=== PATIENT | female | born 1970 ===

== ENCOUNTER 2017-07-22 08:23 | Inpatient (IN) | payer OTHER ==
[2017-07-22 08:32] VITALS: BMI 48.4
[2017-07-22 09:26] LABS: BASO % 0.5 % (0.0-2.0); EOS # 0.1 K/uL (0.0-0.7); EOS % 0.8 % (0.0-4.0); HEMATOCRIT 40.8 % (34.0-47.0); LYMPH # 1.7 K/uL (1.0-4.3); LYMPH % 17.9 % (20.0-40.0); MEAN CELL VOLUME 83.2 fL (81.0-99.0); MEAN CORPUSCULAR HEMOGLOBIN 27.7 pg (27.0-31.0); MEAN CORPUSCULAR HGB CONC 33.2 g/dL (33.0-37.0); MEAN PLATELET VOLUME 9.3 fL (7.2-11.7); MONO # 0.6 K/uL (0.0-0.8); MONO % 6.8 % (0.0-10.0); RED CELL DISTRIBUTION WIDTH 14.7 % (11.5-14.5); WHITE BLOOD COUNT 9.4 K/uL (4.8-10.8)
[2017-07-22 09:30] LABS: RBC URINE 1 /hpf (0-3); URINE BACTERIA MANY (<OCC); URINE BILIRUBIN NEGATIVE (NEGATIVE); URINE BLOOD NEGATIVE (NEGATIVE); URINE COLOR Amber (YELLOW); URINE GLUCOSE (UA) NORMAL (Normal); URINE KETONE NEGATIVE (NEGATIVE); URINE LEUKOCYTE ESTERASE TRACE Leu/uL (Negative); URINE PROTEIN NEGATIVE (NEGATIVE); WBC URINE 5 /hpf (0-5)
[2017-07-22 09:35] LABS: CHLORIDE 100 mmol/L (98-107); POTASSIUM 3.9 mmol/L (3.6-5.2); SODIUM 138 mmol/L (132-148)
[2017-07-22 09:38] LABS: ALB/GLOB RATIO 1.1 (1.0-2.1); ALKALINE PHOSPHATASE 122 U/L (38-126); ALT/SGPT 43 U/L (9-52); AST/SGOT 29 U/L (14-36); BILIRUBIN,TOTAL 0.7 mg/dL (0.2-1.3); BLOOD UREA NITROGEN 8 mg/dL (7-17); CALCIUM 8.8 mg/dl (8.6-10.4); CARBON DIOXIDE 26 mmol/L (22-30); GFR AFRICAN-AMERICAN > 60; GLUCOSE,RANDOM 129 mg/dL (65-105); TOTAL PROTEIN 7.8 g/dL (6.3-8.3)
[2017-07-22 09:41] LABS: INR 1.1
--- NOTE | 2017-07-22 09:45 | RAD ---
PROCEDURE: CHEST RADIOGRAPH, 1 VIEW HISTORY: Chest pain COMPARISON: None available. FINDINGS: LUNGS: Moderate venous congestion. Patchy bibasilar airspace opacities. PLEURA: No pneumothorax or pleural fluid seen. CARDIOVASCULAR: Normal. OSSEOUS STRUCTURES: No significant abnormalities. VISUALIZED UPPER ABDOMEN: Normal. OTHER FINDINGS: None. IMPRESSION: Moderate venous congestion. Patchy bibasilar airspace opacities.
[2017-07-22] MEDS ORDERED: Iodixanol 320 mg/ml 150 ml Bottle IV ONE (11:30)
--- NOTE | 2017-07-22 11:33 | C.PDOC ---
History Of Present Illness 46 year old female, with PMHx of diabetes, rheumatoid arthritis, HTN, chronic pain, presents to ED for evaluation of sudden onset of lightheadedness and chest pressure/pain associated with shortness of breath while sitting and working at her desk today. Pt states that she tried to lay down but her symptoms worsened, which prompted her to call the ambulance. Pt also reports worsening bilateral lower extremity swelling over the last 1 week. She denies palpitations, headache, visual changes, facial droop, slurred speech, extremity weakness, sensory changes, fever. Time Seen by Provider: 07/22/17 08:37 Chief Complaint (Nursing): Dizziness/Lightheaded History Per: Patient History/Exam Limitations: no limitations Onset/Duration Of Symptoms: Hrs Current Symptoms Are (Timing): Still Present Activity At Onset Of Symptoms: Sitting Associated Symptoms Preceding Syncopal Episode: Lightheadedness Fall Associated With With Symptoms: No Severity: Moderate Additional History Per: Patient Past Medical History Reviewed: Historical Data, Nursing Documentation, Vital Signs Vital Signs: Last Vital Signs Temp 97.5 F L 07/22/17 16:46 Pulse 64 07/22/17 16:46 Resp 16 07/22/17 16:46 BP 107/61 07/22/17 16:46 Pulse Ox 98 07/22/17 16:46 - Medical History PMH: Diabetes, HTN, Rheumatoid Arthritis Surgical History: Appendectomy Family History: States: No Known Family Hx - Social History Hx Tobacco Use: Yes Hx Alcohol Use: No Hx Substance Use: Yes - Immunization History Hx Tetanus Toxoid Vaccination: Yes Hx Influenza Vaccination: No Hx Pneumococcal Vaccination: No Review Of Systems Except As Marked, All Systems Reviewed And Found Negative. Constitutional: Negative for: Fever, Chills Eyes: Negative for: Vision Change Cardiovascular: Positive for: Chest Pain (pressure), Edema (lower extremities), Light Headedness. Negative for: Palpitations Respiratory: Positive for: Shortness of Breath. Negative for: Cough Gastrointestinal: Negative for: Nausea, Vomiting, Abdominal Pain Skin: Negative for: Rash Neurological: Negative for: Weakness, Numbness, Change in Speech, Headache Physical Exam - Physical Exam Appears: Well, Non-toxic, Other (anxious appearing, morbidly obese, speaking in full sentences) Skin: Warm, Dry, No Rash Head: Normacephalic Eye(s): bilateral: Normal Inspection Oral Mucosa: Moist Neck: Supple Chest: Symmetrical Cardiovascular: Rhythm Regular (tachycardic), No Murmur Respiratory: Normal Breath Sounds, No Rales, No Rhonchi, No Wheezing Gastrointestinal/Abdominal: Normal Exam, Bowel Sounds, Soft, No Tenderness, No Guarding, No Rebound, Other (obese abdomen) Back: No CVA Tenderness Extremity: Normal ROM, No Tenderness, Pedal Edema (+1 pitting edema bilateral LEs), No Calf Tenderness, Capillary Refill (<2 sec.), No Deformity Pulses: Left Dorsalis Pedis: Normal, Right Dorsalis Pedis: Normal Neurological/Psych: Oriented x3 ED Course And Treatment - Laboratory Results Result Diagrams: 07/22/17 09:21 07/22/17 09:21 ECG: Interpreted By Me, Viewed By Me ECG Rhythm: Sinus Tachycardia ECG Interpretation: Abnormal Interpretation Of ECG: Normal axis. No acute ST/T wave changes. Rate From EC (bpm) O2 Sat by Pulse Oximetry: 97 (on RA) Pulse Ox Interpretation: Normal - CT Scan/US V/Q SCAN Other Rad Studies (CT/US): Read By Radiologist, Radiology Report Reviewed CT/US Interpretation: Accession No. : [id number]. Patient Name / ID : EDUARDA WALSH / [id number]. Exam Date : 07/22/2017 14:08:13 ( Approved ). Study Comment : Sex / Age : F / 46Y. Creator : Riley Bose MD. Dictator : Riley Bose MD. Repeat Chief : Account Director : Riley Bose MD. Approver2 : Report Date : 07/22/2017 15:25:29. My Comment : . COMPARISON: Chest radiograph 07/30/[address] angiogram of the chest , same date. TECHNIQUE: 9.5 mCi Xe-133 Gas. . 3.9 mCI technetium 99-m MAA administered intravenously. FINDINGS: VENTILATION COMPONENT: Diminished uptake is appreciated the left lung primarily in the posterior view. Homogeneous uptake is seen at the left lung. PERFUSION COMPONENT: A small unmatched defect is appreciate the medial superior segment left lower lobe with a very small possible perfusion mismatch at the left apex laterally. A matched moderate sized superior segment left lower lobe perfusion defect is identified. IMPRESSION: Pattern is intermediate probability for pulmonary embolus. CT ANGIO CHEST Other Rad Studies (CT/US): Read By Radiologist, Radiology Report Reviewed CT/US Interpretation: Accession No. : [id number]. Patient Name / ID : EDUARDA WALSH Y / [id number]. Exam Date : 07/22/2017 11:49:24 ( Approved ). Study Comment : Sex / Age : F / 46Y. Creator : Anthony Gates MD. Dictator : Anthony Gates MD. Repeat Chief : Account Director : Anthony Gates MD. Approver2 : Report Date : 07/22/2017 13:19:17. My Comment : . PROCEDURE: CT Chest with contrast (Pulmonary Angiogram). HISTORY: CP, SOB, ELEVATED DIMER, R/O IN. COMPARISON: Chest x-ray performed earlier same day. TECHNIQUE : Axial computed tomography images were obtained of the chest in the pulmonary arterial phase of enhancement. Coronal and sagittal reformatted images were created and reviewed. Radiation dose: Total exam DLP = 673 mGy-cm. This CT exam was performed using one or more of the following dose reduction techniques : Automated exposure control, adjustment of the mA and/or kV according to patient size, and/or use of iterative reconstruction technique. FINDINGS: PULMONARY ARTERIES: Suboptimal contrast bolus. No definite pulmonary embolus identified. AORTA: Thoracic aorta is normal in caliber. LUNGS: Focal area of atelectasis/scarring noted in the right upper lobe. Multifocal areas of air trapping noted in the bilateral upper lobes and lower lobes. The trachea and major segmental bronchi are patent. PLEURAL SPACES: No pleural effusion identified. HEART: Heart size is within normal limits. No significant pericardial effusion. LYMPH NODES: There is no significant axillary, mediastinal, or hilar lymphadenopathy. BONES, CHEST WALL: Mild levoscoliosis upper thoracic spine. OTHER FINDINGS: Mild to moderate atrophy of the pancreas. Remainder of the visualized upper abdominal viscera are grossly unremarkable. Visualized thyroid gland is unremarkable. IMPRESSION: Suboptimal contrast bolus. No definite pulmonary embolus identified. Multifocal areas of air trapping throughout the lungs as above. Additional findings as above. Progress Note: Blood work, CXR, EKG, UA ordered and reviewed. D-dimer was elevated - CTA chest angio ordered. CTA chest result showed "suboptimal contrast bolus", so VQ scan also ordered. Discussed patient with Dr. Farah, who agrees with admission for chest pain, r/o ACS, possible PE (V/Q scan pending ). 3:35PM- V/Q Scan shows "intermediate probability" for PE - Lovenox SC ordered for possible PE. - Physician Consult Information Physician Contacted: Irina Farah Outcome Of Conversation: Discussed patient with Dr. Farah, agrees with telemetry admission for chest pain r/o ACS vs PE (V/Q scan pending). Critical Care Time - Critical Care Note Total Time (in mins): 35 Documented critical care: time excludes all time spent performing seperately billable procedures. Medical Decision Making Medical Decision Making: differential diagnoses considered: SC/ACS, PE, pneumonia, bronchitis, COPD/ asthma, CHF, aortic dissection, rheumatoid aortitis, pancreatitis, gastritis, PUD, GERD, esophageal spasm, costochondritis, malignancy, shingles Disposition - Disposition Disposition: HOSPITALIZED Disposition Time: 13:27 Condition: STABLE - Clinical Impression Clinical Impression: Chest pain, Dyspnea, Pulmonary embolism - Scribe Statement The provider has reviewed the documentation as recorded by the Micah Gates All medical record entries made by the Veroniqueibfrank were at my direction and personally dictated by me. I have reviewed the chart and agree that the record accurately reflects my personal performance of the history, physical exam, medical decision making, and the department course for this patient. I have also personally directed, reviewed, and agree with the discharge instructions and disposition. Decision To Admit - Pt Status Changed To: Hospital Disposition Of: Inpatient - Admit Certification Admit to Inpatient:: After my assessment, the patient will require hospitalization for at least two midnights. This is because of the severity of symptoms shown, intensity of services needed, and/or the medical risk in this patient being treated as an outpatient. - InPatient: Physician Admission Certification: I certify that this patient requires 2 or more midnights of care for the following reason:: see notes - . Bed Request Type: Telemetry Admitting Physician: Irina Farah Patient Diagnosis: Chest pain, Dyspnea, Pulmonary embolism
--- NOTE | 2017-07-22 13:20 | CT ---
PROCEDURE: CT Chest with contrast (Pulmonary Angiogram) HISTORY: CP, SOB, ELEVATED DIMER, R/O [place] COMPARISON: Chest x-ray performed earlier same day TECHNIQUE: Axial computed tomography images were obtained of the chest in the pulmonary arterial phase of enhancement. Coronal and sagittal reformatted images were created and reviewed. Radiation dose: Total exam DLP = 673 mGy-cm. This CT exam was performed using one or more of the following dose reduction techniques: Automated exposure control, adjustment of the mA and/or kV according to patient size, and/or use of iterative reconstruction technique. FINDINGS: PULMONARY ARTERIES: Suboptimal contrast bolus. No definite pulmonary embolus identified. AORTA: Thoracic aorta is normal in caliber. LUNGS: Focal area of atelectasis/scarring noted in the right upper lobe. Multifocal areas of air trapping noted in the bilateral upper lobes and lower lobes. The trachea and major segmental bronchi are patent. PLEURAL SPACES: No pleural effusion identified. HEART: Heart size is within normal limits. No significant pericardial effusion. LYMPH NODES: There is no significant axillary, mediastinal, or hilar lymphadenopathy. BONES, CHEST WALL: Mild levoscoliosis upper thoracic spine. OTHER FINDINGS: Mild to moderate atrophy of the pancreas. Remainder of the visualized upper abdominal viscera are grossly unremarkable. Visualized thyroid gland is unremarkable. IMPRESSION: Suboptimal contrast bolus. No definite pulmonary embolus identified. Multifocal areas of air trapping throughout the lungs as above. Additional findings as above.
--- NOTE | 2017-07-22 15:27 | NM ---
COMPARISON: Chest radiograph 07/30/[address] angiogram of the chest, same date. TECHNIQUE: 9.5 mCi Xe-133 Gas. 3.9 mCI technetium 99-m MAA administered intravenously. FINDINGS: VENTILATION COMPONENT: Diminished uptake is appreciated the left lung primarily in the posterior view. Homogeneous uptake is seen at the left lung. PERFUSION COMPONENT: A small unmatched defect is appreciate the medial superior segment left lower lobe with a very small possible perfusion mismatch at the left apex laterally. A matched moderate sized superior segment left lower lobe perfusion defect is identified. IMPRESSION: Pattern is intermediate probability for pulmonary embolus.
[2017-07-22] MEDS ORDERED: Enoxaparin 80 mg Syringe SC STA (15:36)
[2017-07-22] MEDS: (Novolin R) Insulin Human Regular 100 units/ml vial SC SCH (21:54)
--- NOTE | 2017-07-23 07:57 | CP.PCM.CON ---
History of Present Illness - History of Present Illness History of Present Illness: Consultation requested for evaluation of chest pain HPI: 46-year-old female with past medical history significant for hypertension history of abusing heroin resenting with complaints of chest pain. According to the patient she has a long history of drug abuse reportedly using a back 1-2 bags of heroin in the past presented after abusing of back and developing chest pain. She reports having anxiety denies having any depression. According to the patient she was at home and she started developing severe shortness of breath accompanied with pressure-like sensation. Symptoms lasted for a few hours and therefore she came to the emergency room. He has a history of diabetes that was diagnosed about 6 months ago by her primary care physician and pain doctor and also has been on blood pressure medications for hypertension. Currently smokes half a pack per day and is morbidly obese. Review of Systems - Review of Systems All systems: reviewed and no additional remarkable complaints except - Constitutional Constitutional: As Per HPI - EENT Eyes: As Per HPI Ears: As Per HPI Nose/Mouth/Throat: As Per HPI - Breasts Breasts: As Per HPI - Cardiovascular Cardiovascular: As Per HPI - Respiratory Respiratory: As Per HPI - Gastrointestinal Gastrointestinal: As Per HPI - Genitourinary Genitourinary: As Per HPI - Reproductive: Female Reproductive:Female: As Per HPI - Menstruation Menstruation: As Per HPI - Musculoskeletal Musculoskeletal: As Per HPI - Integumentary Integumentary: As Per HPI - Neurological Neurological: As Per HPI - Psychiatric Psychiatric: As Per HPI - Endocrine Endocrine: As Per HPI - Hematologic/Lymphatic Hematologic: As Per HPI Past Patient History - Past Medical History & Family History Past Medical History?: Yes Pertinent Family History: +ve for HTN - Past Social History Smoking Status: Current Some Days Smoker - CARDIAC Hx Cardiac Disorders: Yes Hx Hypertension: Yes - PULMONARY Hx Respiratory Disorders: No - NEUROLOGICAL Hx Neurological Disorder: No - HEENT Hx HEENT Problems: No - RENAL Hx Chronic Kidney Disease: No - ENDOCRINE/METABOLIC Hx Endocrine Disorders: Yes Hx Diabetes Mellitus Type 2: Yes - HEMATOLOGICAL/ONCOLOGICAL Hx Blood Disorders: No - INTEGUMENTARY Hx Dermatological Problems: No - MUSCULOSKELETAL/RHEUMATOLOGICAL Hx Musculoskeletal Disorders: Yes Hx Falls: No Hx Rheumatoid Arthritis: Yes - GASTROINTESTINAL Hx Gastrointestinal Disorders: No - GENITOURINARY/GYNECOLOGICAL Hx Genitourinary Disorders: No - PSYCHIATRIC Hx Psychophysiologic Disorder: Yes Hx Substance Use: Yes (heroin daily) - SURGICAL HISTORY Hx Surgeries: Yes Hx Appendectomy: Yes - ANESTHESIA Hx Anesthesia: Yes Hx Anesthesia Reactions: No Hx Malignant Hyperthermia: No Meds Allergies/Adverse Reactions: Allergies Allergy/AdvReac Type Severity Reaction Status Date / Time Penicillins Allergy RASH Verified 07/22/17 08:32 - Medications Medications: Current Medications Insulin Human Regular (Novolin R) 0 unit SC ACHS CHARISSA PRN Reason: Protocol Last Admin: 07/22/17 21:54 Dose: Not Given Pneumococcal Polyvalent Vaccine (Pneumovax 23 Vaccine) 0.5 ml IM .ONCE ONE Stop: 07/25/17 10:01 Physical Exam - Constitutional Appears: Well - Head Exam Head Exam: ATRAUMATIC, NORMAL INSPECTION, NORMOCEPHALIC - Eye Exam Eye Exam: EOMI, Normal appearance, PERRL Pupil Exam: NORMAL ACCOMODATION, PERRL - ENT Exam ENT Exam: Mucous Membranes Moist, Normal Exam - Neck Exam Neck exam: Positive for: Normal Inspection - Respiratory Exam Respiratory Exam: Clear to Auscultation Bilateral, NORMAL BREATHING PATTERN - Cardiovascular Exam Cardiovascular Exam: REGULAR RHYTHM, +S1, +S2, Systolic Murmur - GI/Abdominal Exam GI & Abdominal Exam: Normal Bowel Sounds, Soft. absent: Tenderness - Extremities Exam Extremities exam: Positive for: normal inspection - Back Exam Back exam: NORMAL INSPECTION - Neurological Exam Neurological exam: Alert, CN II-XII Intact, Normal Gait, Oriented x3, Reflexes Normal - Psychiatric Exam Psychiatric exam: Normal Affect, Normal Mood - Skin Skin Exam: Dry, Intact, Normal Color, Warm Results - Vital Signs Recent Vital Signs: Last Vital Signs Temp 98.4 F 07/22/17 23:00 Pulse 86 07/23/17 01:05 Resp 20 07/22/17 23:00 BP 119/74 07/22/17 23:00 Pulse Ox 96 07/22/17 23:00 - Labs Result Diagrams: 07/22/17 09:21 07/22/17 09:21 Labs: Laboratory Results - last 24 hr 07/22/17 07/22/17 07/22/17 08:39 09:21 09:21 WBC 9.4 RBC 4.90 Hgb 13.6 Hct 40.8 MCV 83.2 MCH 27.7 MCHC 33.2 RDW 14.7 H Plt Count 179 MPV 9.3 Neut % (Auto) 74.0 Lymph % (Auto) 17.9 L [place] % (Auto) 6.8 Eos % (Auto) 0.8 Baso % (Auto) 0.5 Neut # 7.0 Lymph # 1.7 [place] # 0.6 Eos # 0.1 Baso # 0.0 PT 12.8 H INR 1.1 APTT 39 H D-Dimer, Quantitative 474 H Sodium Potassium Chloride Carbon Dioxide Anion Gap BUN Creatinine Est GFR ( Amer) Est GFR (Non-Af Amer) POC Glucose (mg/dL) 154 H Random Glucose Calcium Total Bilirubin AST ALT Alkaline Phosphatase Total Creatine Kinase CK-MB (Mass) Troponin I Troponin I, Quant NT-Pro-B Natriuret Pep Total Protein Albumin Globulin Albumin/Globulin Ratio Urine Color Urine Clarity Urine pH Ur Specific [place] Urine Protein Urine Glucose (UA) Urine Ketones Urine Blood Urine Nitrate Urine Bilirubin Urine Urobilinogen Ur Leukocyte Esterase Urine WBC (Auto) Urine RBC (Auto) Ur Squamous Epith Cells Urine Bacteria Urine HCG, Qual Urine Opiates Screen Urine Methadone Screen Ur Barbiturates Screen Ur Phencyclidine Scrn Ur Amphetamines Screen U Benzodiazepines Scrn U Oth Cocaine Metabols U Cannabinoids Screen 07/22/17 07/22/17 07/22/17 09:21 09:21 09:21 WBC RBC Hgb Hct MCV MCH MCHC RDW Plt Count MPV Neut % (Auto) Lymph % (Auto) [place] % (Auto) Eos % (Auto) Baso % (Auto) Neut # Lymph # [place] # Eos # Baso # PT INR APTT D-Dimer, Quantitative Sodium 138 Potassium 3.9 Chloride 100 Carbon Dioxide 26 Anion Gap 15 BUN 8 Creatinine 0.7 Est GFR ( Amer) > 60 Est GFR (Non-Af Amer) > 60 POC Glucose (mg/dL) Random Glucose 129 H Calcium 8.8 Total Bilirubin 0.7 AST 29 ALT 43 Alkaline Phosphatase 122 Total Creatine Kinase 100 CK-MB (Mass) 0.72 Troponin I < 0.0120 Troponin I, Quant NT-Pro-B Natriuret Pep 50.2 Total Protein 7.8 Albumin 4.0 Globulin 3.7 Albumin/Globulin Ratio 1.1 Urine Color Telma Urine Clarity Hazy Urine pH 5.0 Ur Specific [place] 1.018 Urine Protein Negative Urine Glucose (UA) Normal Urine Ketones Negative Urine Blood Negative Urine Nitrate Positive H Urine Bilirubin Negative Urine Urobilinogen 4.0 H Ur Leukocyte Esterase Trace Urine WBC (Auto) 5 Urine RBC (Auto) 1 Ur Squamous Epith Cells 9 H Urine Bacteria Many H Urine HCG, Qual Negative Urine Opiates Screen Positive Urine Methadone Screen Negative Ur Barbiturates Screen Negative Ur Phencyclidine Scrn Negative Ur Amphetamines Screen Negative U Benzodiazepines Scrn Negative U Oth Cocaine Metabols Negative U Cannabinoids Screen Negative 07/22/17 07/22/17 07/23/17 21:06 21:39 06:00 WBC RBC Hgb Hct MCV MCH MCHC RDW Plt Count MPV Neut % (Auto) Lymph % (Auto) [place] % (Auto) Eos % (Auto) Baso % (Auto) Neut # Lymph # [place] # Eos # Baso # PT INR APTT D-Dimer, Quantitative Sodium Potassium Chloride Carbon Dioxide Anion Gap BUN Creatinine Est GFR ( Amer) Est GFR (Non-Af Amer) POC Glucose (mg/dL) 144 H Random Glucose Calcium Total Bilirubin AST ALT Alkaline Phosphatase Total Creatine Kinase 387 H 365 H CK-MB (Mass) 1.26 0.84 Troponin I Troponin I, Quant < 0.0120 < 0.0120 NT-Pro-B Natriuret Pep Total Protein Albumin Globulin Albumin/Globulin Ratio Urine Color Urine Clarity Urine pH Ur Specific [place] Urine Protein Urine Glucose (UA) Urine Ketones Urine Blood Urine Nitrate Urine Bilirubin Urine Urobilinogen Ur Leukocyte Esterase Urine WBC (Auto) Urine RBC (Auto) Ur Squamous Epith Cells Urine Bacteria Urine HCG, Qual Urine Opiates Screen Urine Methadone Screen Ur Barbiturates Screen Ur Phencyclidine Scrn Ur Amphetamines Screen U Benzodiazepines Scrn U Oth Cocaine Metabols U Cannabinoids Screen 07/23/17 06:40 WBC RBC Hgb Hct MCV MCH MCHC RDW Plt Count MPV Neut % (Auto) Lymph % (Auto) [place] % (Auto) Eos % (Auto) Baso % (Auto) Neut # Lymph # [place] # Eos # Baso # PT INR APTT D-Dimer, Quantitative Sodium Potassium Chloride Carbon Dioxide Anion Gap BUN Creatinine Est GFR ( Amer) Est GFR (Non-Af Amer) POC Glucose (mg/dL) 126 H Random Glucose Calcium Total Bilirubin AST ALT Alkaline Phosphatase Total Creatine Kinase CK-MB (Mass) Troponin I Troponin I, Quant NT-Pro-B Natriuret Pep Total Protein Albumin Globulin Albumin/Globulin Ratio Urine Color Urine Clarity Urine pH Ur Specific [place] Urine Protein Urine Glucose (UA) Urine Ketones Urine Blood Urine Nitrate Urine Bilirubin Urine Urobilinogen Ur Leukocyte Esterase Urine WBC (Auto) Urine RBC (Auto) Ur Squamous Epith Cells Urine Bacteria Urine HCG, Qual Urine Opiates Screen Urine Methadone Screen Ur Barbiturates Screen Ur Phencyclidine Scrn Ur Amphetamines Screen U Benzodiazepines Scrn U Oth Cocaine Metabols U Cannabinoids Screen Assessment & Plan (1) Chest pain Assessment and Plan: Etiology of her chest pain most likely secondary to pulmonary cause. Acute coronary syndrome has been ruled out with serial enzymes 3 EKG shows no abnormalities. She had undergone an echocardiogram that shows possible mild LV systolic dysfunction but the views are somewhat limited VQ scan for pulmonary embolism shows intermediate probability. She has history of heroin abuse questionable interstitial lung disease. I would continue her on the Lovenox therapy she does have history of obesity and smoking can evaluate her with outpatient nuclear stress test. Status: Acute (2) Dyspnea Assessment and Plan: Etiology of dyspnea secondary to question PE versus interstitial lung disease echo shows mild LV systolic dysfunction with EF of 45% but her BNP is essentially unremarkable troponin 3 are negative I would keep the patient on low-dose beta-dutch along with an FELICIA inhibitor. Low-dose diuretic therapy of Lasix 20 mg p.o. daily Status: Acute (3) HTN (hypertension) Assessment and Plan: DC triamterene Dyazide and switch her to Lasix 20 mg p.o. daily add Coreg 3.125 p.o. twice daily and lisinopril 20 mg p.o. daily Status: Acute (4) Pulmonary embolism Assessment and Plan: cont with lovenox for now pulmonary eval Status: Acute
[2017-07-23] MEDS: (Novolin R) Insulin Human Regular 100 units/ml vial SC SCH ×4 (08:30→22:23)
[2017-07-23] MEDS ORDERED: Pneumococcal 23-Valent Vaccine IM ONE (10:00)
[2017-07-23] MEDS ORDERED: Influenza Virus Vaccine 45 mcg/0.5 ml Syr IM ONE (10:00)
[2017-07-23] MEDS ORDERED: hydroCHLOROthiazide-Triamterene 25 mg-37.5 mg Cap UD PO SCH (11:00)
[2017-07-23] MEDS: Enoxaparin 40 mg Syringe SC SCH (13:14)
--- NOTE | 2017-07-23 15:06 | PCM.PSYCH ---
Initial Psychiatric Evaluation - Initial Psychiatric Evaluation Type of Admission: Voluntary Legal Status: Capacity Chief Complaint (in patient's own words): I was having chest pain.' History of Present Illness and Precipitating Events: This is a 46 years old HF, who lives with her , currently unemployed, escorted to the ED because of chest pain. Patient reports of a long history of abusing 1-2 bags of heroin. She denies any past psychiatric history. As per the pt, a day before yesterday she abused a bag of heroin and today she developed chest pain, so she came to the hospital to get help. She reports anxiety but denies any depressed mood or any suicidal ideation or homicidal ideation. She denies any auditory or visual hallucinations or any persecutory delusions. She denies any other substance abuse. She denies any withdrawal symptoms from heroin. Past medical history HTN Current Medications: Active Medications Generic Name Dose Route Start Last Admin Trade Name Freq PRN Reason Stop Dose Admin Enoxaparin Sodium 40 mg 07/23/17 12:15 07/23/17 13:14 Lovenox SC 40 mg DAILY CHARISSA Administration Insulin Human Regular 0 unit 07/22/17 22:00 07/23/17 12:30 Novolin R SC Not Given ACHS CHARISSA Protocol Metformin HCl 500 mg 07/23/17 10:00 07/23/17 11:00 Glucophage PO Not Given BID [facility]1983 Pneumococcal Polyvalent Vaccine 0.5 ml 07/25/17 10:00 Pneumovax 23 Vaccine IM 07/25/17 10:01 .ONCE ONE Tramadol HCl 50 mg 07/23/17 12:12 07/23/17 13:14 Ultram PO 50 mg Q8 PRN Administration Pain Triamterene/HCTZ 1 cap 07/23/17 11:00 07/23/17 11:59 Dyazide 25 Mg-37.5 Mg PO 1 cap DAILY CHARISSA Administration Past Psychiatric History - Past Psychiatric History Previous Treatment History: None Pertinent Medical Hx (Current Medical&Sleep Prob, Allergies): Allergies Allergy/AdvReac Type Severity Reaction Status Date / Time Penicillins Allergy RASH Verified 07/22/17 08:32 Oxycodone HCl/Acetaminophen [Percocet 325 mg-10 mg] 1 tab PO TID 02/17/16 Naproxen [Naprosyn Tab] 375 mg PO TID 07/21/16 Triamterene/Hydrochlorothiazid [Triamterene-Hydrochlorothiazide 25 mg-37.5 mg] 1 cap PO DAILY 07/22/17 metFORMIN [glucOPHAGE] 500 mg PO BID 07/22/17 oxyCODONE [oxyCODONE Immediate Release Tab] 15 mg PO BID 07/22/17 Review of Systems - Review of Systems All systems: reviewed and no additional remarkable complaints except - Psychiatric Psychiatric: Anxiety Mental Status Examination - Personal Presentation Personal Presentation: Looks stated age - Affect Affect: Constricted - Motor Activity Motor Activity: Calm - Reliability in Providing Information Reliability in Providing Information: Good - Speech Speech: Organized - Mood Mood: Anxious - Formal Thought Process Formal Thought Process: No Impairment - Obsessions/Compulsions Obsessions: No Compulsions: No - Cognitive Functions Orientation: Person, Place, Situation, Time Sensorium: Alert Attention/Concentration: Attentive Abstract Thinking: [place] Estimate of Intelligence: Below average Judgement: Intact, as evidence by: Good judgement, Intact, as evidence by: Insight regarding need for hospitalization - Risk Risk: Diminished functioning - Strength & Assets Inventory Strength & Assets Inventory: Family support DSM 5 DX - DSM 5 DSM 5 Diagnosis: Opioid use disorder mild - Recommended/Plan of Treatment Treatment Recommendations and Plan of Treatment: Opioid use disorder mild Pt psychiatrically stable and cleared to be discharged. - Smoking Cessation Smoking Cessation Initiated: No
--- NOTE | 2017-07-23 20:17 | CT ---
EXAM: CT Head Without Intravenous Contrast CLINICAL HISTORY: 46 years old, female; Signs and symptoms; Syncope and collapse; Additional info: Syncopy TECHNIQUE: Axial computed tomography images of the head/brain without intravenous contrast. All CT scans at this facility use one or more dose reduction techniques, viz.: automated exposure control; ma/kV adjustment per patient size (including targeted exams where dose is matched to indication; i.e. head); or iterative reconstruction technique. COMPARISON: No relevant prior studies available. FINDINGS: Brain: No intracranial hemorrhage. No mass. No definite edema. Ventricles: No hydrocephalus. Bones/joints: No acute fracture. Soft tissues: Unremarkable. Sinuses: Tiny RIGHT sphenoid retention cyst. Scattered minimal mucosal thickening of ethmoid sinuses. Mastoid air cells: No mastoid effusion. Orbits: Unremarkable as visualized. IMPRESSION: 1. No acute intracranial abnormality. 2. Incidental/non-acute findings are described above.
--- NOTE | 2017-07-23 20:59 | HP ---
The patient was seen and examined on 07/22/2017 in ER. CHIEF COMPLAINT: Dizziness and lightheadedness. HISTORY OF PRESENT ILLNESS: Ms. Zuri Gavin is a 46 years old new for me with past medical history of diabetes mellitus, rheumatoid arthritis, hypertension, and chronic pain. She came to the emergency room for evaluation of sudden onset of lightheadedness, chest pressure, pain associated with shortness of breath while sitting at work at her desk on the day of admission and the patient states that she tried to lay down, but her symptoms worsened, which prompted her to call the ambulance. The patient reports worsening bilateral lower extremity swelling over the last one week. Denies palpitation. No nausea, vomiting, or diarrhea. No slurring of speech. No facial droop. No sensory changes. No fever. PAST MEDICAL HISTORY: Diabetes mellitus, hypertension, rheumatoid arthritis, and appendectomy. FAMILY HISTORY: Father and mother noncontributory. HABITS: Smoking, yes. No alcohol. Substance abuse, yes. ALLERGIES: THE PATIENT IS ALLERGIC WITH PENICILLIN. REVIEW OF SYSTEMS: The patient was seen and examined on the bedside in the ER, sleepy, arousable, looking comfortable, and moving all 4 extremities. She was awake and was conversating with me. She gave me her whole history. PHYSICAL EXAMINATION: VITAL SIGNS: Temperature 99.6, pulse 93, blood pressure 163/94, repeat is 119/74, respiratory rate 20, and pulse oximetry 98%. HEENT: Head is normocephalic and atraumatic. Eyes; PERRLA. Extraocular muscles intact. Conjunctivae clear. Nose patent. Mucous membranes moist. NECK: Supple. No carotid bruits, JVD, or thyromegaly. CHEST: Bilaterally symmetrical. HEART: S1 and S2 positive. LUNGS: Clear to auscultation. ABDOMEN: Soft. Bowel sounds are positive. No organomegaly. EXTREMITIES: No edema. No cyanosis. NEUROLOGIC: The patient is awake and alert. Moving all 4 extremities. No focal deficit. LABORATORY DATA: White blood cells 9.4, hemoglobin 13.6, hematocrit 40.8, and platelets 179. Sodium 138, potassium 3.9, BUN 8, creatinine 0.7, and glucose 154. Total 387, before it was 100 and repeat is 365 trending down. ASSESSMENT AND PLAN: Ms. Zuri Gavin is a 46-year-old lady with diabetes mellitus, urinary tract infection, opioids positive in the urine, came with chest pain, swelling of the leg, lightheadedness. Seen by Dr. Adam Ascencio, director of special events. Currently smoking, urged to quit smoking. Hypertension. Diabetes mellitus, not controlled. Musculoskeletal pain, rheumatoid arthritis. History of heroin use everyday. History of appendectomy, started the patient on sliding scale insulin, cardiac enzymes, and troponin ordered. Starting on aspirin and dose of Lovenox given in ER. Gastrointestinal and deep venous thrombosis prophylaxis. Repeat labs. We will follow. Irina Farah MD MTDD
--- NOTE | 2017-07-23 23:34 | CON ---
DATE: HISTORY OF PRESENT ILLNESS: This is a 46-year-old female with past medical history of diabetes, rheumatoid arthritis, hypertension, chronic pain and came for the evaluation of suddenly onset of lightheadedness and chest pressure. The patient lay down, fell, worse, so called 911 and came to the hospital for further workup. Called to evaluate the patient. The patient sitting more comfortably. PAST MEDICAL HISTORY: Hypertension, rheumatoid arthritis and diabetes. SOCIAL HISTORY: Smokes. Does not drink. REVIEW OF SYSTEMS: A 10-point review of system was negative except chest heaviness. PHYSICAL EXAMINATION: VITAL SIGNS: Blood pressure 107/61. HEENT: Normocephalic and atraumatic. NECK: Supple. NEUROLOGIC: Alert, awake, and oriented x3. No aphasia. Cranial nerves II through XII are tested. Pupils reactive. EOM intact. Visual mckinnon full. No facial asymmetry. Tongue midline. Motor examination, moves all the extremities equally. Tone normal. Deep tendon reflexes 1+. Both plantars are downgoing. Sensory appears intact. Cerebellar and gait deferred. IMPRESSION: Lightheadedness, possibly presyncopal. PLAN: Workup in progress. We will do the CAT scan of the head without contrast. Continue present cardiac workup. Brodie Rivas MD
--- NOTE | 2017-07-24 00:17 | CARD ---
APPROVED REPORT EXAM: Two-dimensional and M-mode echocardiogram with Doppler and color Doppler. Other Information Quality : GoodRhythm : NSR INDICATION Dizziness and Vertigo Pulmonary Embolism Chest Pain Syncope RISK FACTORS Hypertension 2D DIMENSIONS IVSd0.8 (0.7-1.1cm)LVDd4.8 (3.9-5.9cm) PWd0.8 (0.7-1.1cm)LVDs3.1 (2.5-4.0cm) FS (%) 35.5 %LVEF (%)64.8 (>50%) M-Mode DIMENSIONS RVDd2.05 (2.1-3.2cm)Left Atrium (MM)3.95 (2.5-4.0cm) Aortic Root2.95 (2.2-3.7cm)Aortic Cusp Exc.2.00 (1.5-2.0cm) Mitral Valve MV E Nxjfzsmg05.0cm/sMV A Zhgfnuej24.5cm/sE/A ratio1.7 TDI E/Lateral E'0.0E/Medial E'0.0 Tricuspid Valve TR Peak [id number]/sTR Peak [id number] LEFT VENTRICLE The left ventricle is normal size. There is normal left ventricular wall thickness. The left ventricular function is normal. The left ventricular ejection fraction is within the normal range. There is normal LV segmental wall motion. The left ventricular diastolic function is normal. RIGHT VENTRICLE The right ventricle is normal size. There is normal right ventricular wall thickness. The right ventricular systolic function is normal. ATRIA The left atrium size is normal. The right atrium size is normal. AORTIC VALVE The aortic valve is not well visualized. There is no aortic valvular stenosis. MITRAL VALVE The mitral valve is normal in structure. Mitral regurgitation is mild. TRICUSPID VALVE There is mild pulmonary hypertension. PULMONIC VALVE The pulmonary valve is normal in structure. There is no pulmonic valvular regurgitation. There is no pulmonic valvular stenosis. GREAT VESSELS The aortic root is normal in size. The IVC is normal in size and collapses >50% with inspiration. PERICARDIAL EFFUSION There is no pericardial effusion. <Conclusion> The left ventricle is normal size. There is normal left ventricular wall thickness. The left ventricular function is normal. The left ventricular ejection fraction is within the normal range. There is normal LV segmental wall motion. The left ventricular diastolic function is normal. Mitral regurgitation is mild. There is mild pulmonary hypertension.
--- NOTE | 2017-07-24 03:21 | PN ---
DATE: SUBJECTIVE: The patient is seen and examined on the bedside, looking comfortable. No nausea, vomiting, or diarrhea. No hematuria or hematochezia. No swelling of the leg. No chest pain. No palpitations. No headache and no dizziness. PHYSICAL EXAMINATION: VITAL SIGNS: Temperature 98.3, pulse 93, blood pressure is 131/84 and respiratory rate 20. HEENT: Head is normocephalic and atraumatic. Eyes; PERRLA. Extraocular muscles intact. Conjunctiva clear. Nose patent. Mucous membrane moist. NECK: Supple. No carotid bruits, JVD or thyromegaly. CHEST: Bilaterally symmetrical. HEART: S1 and S2 positive. LUNGS: Clear to auscultation. ABDOMEN: Soft. Bowel sounds are positive. No organomegaly. EXTREMITIES: No edema. No cyanosis. NEUROLOGIC: The patient is awake, alert. Moving all four extremities. No focal deficit. MEDICATIONS: Coreg, Glucophage, Lasix, Lovenox, Pneumovax, tramadol, and lisinopril. LABORATORY DATA: We do not have recent labs today, but we reviewed old labs. Glucose 162, 121, and 126. ASSESSMENT AND PLAN: Ms. Zuri Gavin is a 46-year-old lady with urinary tract infection. Opioids positive. Went for CAT scan of the head, looks like ethmoidal sinusitis. Seen by the automatic embroidery machine tender, Dr. Adam Ascencio. Echocardiography done, results are pending. Lung scan done. Government Relations Manager, psychiatrist, and neurologist is on the case. Started on aspirin, Coreg and metformin. Zestril and Tramadol for pain. Pneumococcal vaccine given. Sliding scale, Lovenox. GI and DVT prophylaxis. Repeat labs. We will follow. Irina Farah MD RICARDA
[2017-07-24 06:17] LABS: HEMATOCRIT 42.3 % (34.0-47.0); MEAN CELL VOLUME 82.9 fL (81.0-99.0); MEAN CORPUSCULAR HEMOGLOBIN 27.3 pg (27.0-31.0); MEAN PLATELET VOLUME 9.5 fL (7.2-11.7); RED CELL DISTRIBUTION WIDTH 14.3 % (11.5-14.5)
[2017-07-24 06:30] LABS: CHLORIDE 102 mmol/L (98-107); POTASSIUM 4.2 mmol/L (3.6-5.2); SODIUM 139 mmol/L (132-148)
[2017-07-24 06:32] LABS: ALB/GLOB RATIO 1.1 (1.0-2.1); ALKALINE PHOSPHATASE 113 U/L (38-126); AST/SGOT 25 U/L (14-36); BILIRUBIN,TOTAL 0.8 mg/dL (0.2-1.3); BLOOD UREA NITROGEN 9 mg/dL (7-17); CARBON DIOXIDE 25 mmol/L (22-30); CHOLESTEROL 171 mg/dL (0-199); GFR AFRICAN-AMERICAN > 60; GLUCOSE,RANDOM 130 mg/dL (65-105); TOTAL PROTEIN 7.9 g/dL (6.3-8.3)
[2017-07-24 06:33] LABS: ALT/SGPT 36 U/L (9-52); CALCIUM 9.4 mg/dl (8.6-10.4)
[2017-07-24 07:01] LABS: THYROID STIMULATING HORMONE 1.26 mIU/L (0.46-4.68)
[2017-07-24] MEDS: (Novolin R) Insulin Human Regular 100 units/ml vial SC SCH ×4 (08:10→21:42)
[2017-07-24] MEDS: Enoxaparin 40 mg Syringe SC SCH (11:00)
[2017-07-25] MEDS: (Novolin R) Insulin Human Regular 100 units/ml vial SC SCH ×4 (07:44→23:03)
[2017-07-25] MEDS ORDERED: Pneumococcal 23-Valent Vaccine IM ONE (10:00)
[2017-07-25] MEDS: GlipiZIDE 10 mg SR Tab PO SCH (10:42)
[2017-07-25] MEDS: Enoxaparin 40 mg Syringe SC SCH (10:44)
--- NOTE | 2017-07-26 00:34 | PN ---
The patient is 46 years old female. SUBJECTIVE: The patient seen and examined on the bedside, looking comfortable. No nausea, vomiting, or diarrhea. No hematuria or hematochezia. No swelling of the legs. No chest pain. No palpitation. No headache or dizziness. PHYSICAL EXAMINATION: VITAL SIGNS: Temperature 98, pulse 72, blood pressure 107/70, respiratory rate 18. HEENT: Head is normocephalic and atraumatic. Eyes; PERRLA. Extraocular muscles intact. Conjunctivae clear. Nose patent. Mucous membrane moist. NECK: Supple. No carotid bruits, no JVD or thyromegaly. CHEST: Bilaterally symmetrical. HEART: S1 and S2 positive. LUNGS: Clear to auscultation. ABDOMEN: Soft. Bowel sounds positive. No organomegaly. EXTREMITIES: No edema. No cyanosis. NEUROLOGIC: The patient is awake and alert. Follows simple commands. MEDICATIONS: Coreg, glipizide, Lasix, Lovenox and Novolin, tramadol, and Zestril. LABORATORY DATA: White blood cells 7.0, hemoglobin 14.0, hematocrit 42.3, and platelets 175. Glucose 127, 123. The patient has nitrites positive, looks like UTI. Toxicology is negative. ASSESSMENT AND PLAN: Went for CAT scan of the head, reviewed by me, seen by Dr. Sanchez Calloway, Dr. Brodie Rivas, and Dr. Robbi Cancino. Seen by cardiology, Dr. Adam Ascencio. Etiology of the chest pain is most likely secondary to pulmonary causes and acute coronary syndrome has been ruled out with serial enzymes x3. EKG shows no abnormalities. She had undergone an echocardiograph that showed possible left ventricle systolic dysfunction, but the views are somewhat limited. V/Q scan of the pulmonary embolism shows intermediate probability. She has history of heroin abuse, questionable interstitial lung disease as per neuropathologist. We will continue Lovenox therapy. She has history of obesity, smoking, can evaluate her outpatient, nuclear stress test, dyspnea improved, hypotension improved, pulmonary embolism, continue Lovenox. Gastrointestinal and deep venous thrombosis prophylaxis. Repeat labs. We will follow. Irina Fraah MD
[2017-07-26 01:29] VITALS: RESP 20
--- NOTE | 2017-07-26 08:17 | CON ---
DATE: ATTENDING PHYSICIAN: Irina Farah MD LOCATION: The patient's room #668, bed A. REASON FOR CONSULTATION: Headache. CHIEF COMPLAINT: The patient came to the emergency room with history of shortness of breath with lightheadedness and chest pressure. The patient to be in workup for pulmonary embolism. During the hospitalization, the patient developed nonspecific headache. From neurologic point of view, I was called in to evaluate her for further management. HISTORY OF PRESENT ILLNESS: Ms. Zuri Gavin is a 46-year-old moderately obese right-handed female presenting with shortness of breath, possible pulmonary embolism, developed headache as per the history. At present, she denies any headache or any visual or verbal dysfunction. PAST MEDICAL HISTORY: Diabetes, rheumatoid arthritis, hypertension, chronic pain syndrome. PERSONAL HISTORY: Denies smoking or alcohol use. ALLERGIES: NO KNOWN ALLERGIES. REVIEW OF SYSTEMS: A 16-point review of systems being reviewed. Neurologically, she had headache. MEDICATIONS: Coreg, Glucotrol, Lasix, Lovenox, Novolin, Ultram, Zestril. PHYSICAL EXAMINATION: VITAL SIGNS: Blood pressure 142/83, mean arterial pressure 102, respiratory rate 16, temperature afebrile. NECK: Supple. No carotid bruit. HEART: Sounds are regular. CHEST: Good air entry. EXTREMITIES: No edema of legs. NEUROLOGICAL EXAMINATION: Mental status examination: She is awake, alert, and oriented to person, place and time. Speech is clear. Naming, repetition, fluency, and comprehension all within normal. CRANIAL NERVE EXAMINATION: Visual field intact. Pupils are reactive to light. Extraocular movements normal. No nystagmus. No facial sensory deficits. No facial asymmetry. Hearing is normal. Tongue is midline. Good gag. MOTOR EXAMINATION: On outstretched hand with eyes closed, no drift noted. Power is symmetric on either side. DEEP TENDON REFLEXES: Biceps, brachialis, triceps are 2+ both knees are absent. Both ankles are absent. Plantars are downgoing. 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 COORDINATION: Olcnhb-dyqr-vurrjk test is intact. Gait deferred at this time. WORKUP: WBC 10.0, hemoglobin 14.1, hematocrit 42.3, platelets 175. Sodium 139, potassium 4.2, chloride 102, bicarbonate 25, BUN 9, creatinine 0.7 with GFR more than 60, glucose 142, calcium 9.4, cholesterol 171, LDL 124, TSH 1.26, triglycerides 96. CONCLUSION: Ms. Zuri Gavin has been presenting with nonspecific headache; however, she admitted, she does not have any headache at present. The current examination does not show any long tract signs. From neurologic point of view, she does not need any further workup as needed unless she changes neuro status probably due to consider to call me for followup evaluation. Anthony Vargas MD
[2017-07-26] MEDS: (Novolin R) Insulin Human Regular 100 units/ml vial SC SCH ×3 (08:37→17:10)
[2017-07-26] MEDS: GlipiZIDE 10 mg SR Tab PO SCH (10:19)
[2017-07-26] MEDS: Enoxaparin 40 mg Syringe SC SCH (10:19)
--- NOTE | 2017-07-26 11:42 | PN ---
DATE: 07/24/2017 SUBJECTIVE: The patient is a 46 years old female. The patient was seen and examined on the bedside. Looking comfortable. No nausea, vomiting, or diarrhea. No hemoptysis. No hematochezia. No swelling of the leg. No chest pain. No palpitations. No headache or dizziness. The patient's daughter was sitting with the patient on bedside. discussion done and all questions answered. PHYSICAL EXAMINATION VITAL SIGNS: Temperature 98.1, pulse 86, blood pressure 142/80, respiratory rate 20. HEENT: Normocephalic, atraumatic. Eyes, PERRLA. Extraocular muscles intact. Conjunctivae clear. Nose patent. NECK: Supple. No carotid bruits. No JVD or thyromegaly. CHEST: Bilaterally symmetrical. HEART: S1 and S2 positive. LUNGS: Clear to auscultation. ABDOMEN: Soft. Bowel sounds positive. No organomegaly. EXTREMITIES: No edema. No cyanosis. NEUROLOGIC: The patient is awake, alert, and moving all four extremities. No focal deficit. MEDICATIONS: Coreg, micafungin, Lasix, Lovenox, insulin, Pneumovax, tramadol, lisinopril. LABORATORY DATA: White blood cell is 10.0, hemoglobin 14.0, hematocrit 42.3, platelets 175. Sodium 131, potassium 4.2, BUN 9, creatinine 0.7, glucose 130. C-reactive protein 9.44. ASSESSMENT AND PLAN: Ms. Zuri Walton 46 years old female with uncontrolled diabetes mellitus, UTI, came with chest pain, went for CAT scan of the head, no acute intracranial abnormality. Sinusitis seen by Dr. Rivas. Lightheadedness possibly presyncope seen by psychiatrist Dr. Robbi Cancino. Automotive Painter Helper Dr. Adam Ascencio. History of hypertension, history of using heroin, using one to two bags heroin in the past, presented after abusing bag and developing a chest after using heroin, has anxiety and depression. Comorbid obesity, dyspnea, ejection fraction 45%, and three negative troponin. According to the outgoing inspector we will keep the patient on low dose of beta-blockers along with FELICIA inhibitors, lower dose of diuretic Lasix, and continue Lovenox. Urged to quit smoking and drugs. GI and DVT prophylaxis. Repeat labs. We will follow. Irina Farah MD MTDTootie
--- NOTE | 2017-07-26 12:33 | CON ---
HISTORY OF PRESENT ILLNESS: A 46-year-old female with past history of diabetes, has complaint of swelling in the lower extremity, chest pain. PHYSICAL EXAMINATION: GENERAL: The patient is awake, alert, and obese. VITAL SIGNS: Temperature 98, pulse 90. HEENT: Within normal limits. NECK: Supple. CHEST: Symmetrical. HEART: Regular. ABDOMEN: Soft. EXTREMITIES: No edema. LABORATORY DATA: CT angiogram, no evidence of PE. A V/Q scan is immediate probability but venous Doppler is negative. ASSESSMENT AND PLAN: The patient has pulmonary embolism. Workup for chest pain as outpatient. Michele Townsend MD
[2017-07-26 16:08] VITALS: PULSE 79
--- NOTE | 2017-07-26 16:45 | CARD ---
APPROVED REPORT EKG Measurement Heart [id number] <Conclusion> Sinus tachycardia Otherwise normal ECG
--- NOTE | 2017-07-26 17:16 | CP.PCM.PN ---
Subjective - Date & Time of Evaluation Date of Evaluation: 07/26/17 Time of Evaluation: 17:16 - Subjective Subjective: Alert, orientedx3, no sob or chest pains now. Objective - Vital Signs/Intake and Output Vital Signs (last 24 hours): Temp Pulse Resp BP Pulse Ox 98.7 F 79 20 141/89 98 07/26/17 08:35 07/26/17 16:20 07/26/17 08:35 07/26/17 10:18 07/26/17 08:35 Intake and Output: 07/26/17 07/26/17 06:59 18:59 Intake Total 950 Balance 950 - Medications Medications: Current Medications Carvedilol (Coreg) 3.125 mg PO BID [facility] Last Admin: 07/26/17 10:18 Dose: 3.125 mg Enoxaparin Sodium (Lovenox) 40 mg SC DAILY [facility] Last Admin: 07/26/17 10:19 Dose: 40 mg Furosemide (Lasix) 40 mg PO DAILY [facility] Last Admin: 07/26/17 10:18 Dose: 40 mg Glipizide (Glucotrol Xl) 10 mg PO DAILY [facility] Last Admin: 07/26/17 10:19 Dose: 10 mg Insulin Human Regular (Novolin R) 0 unit SC [facility] PRN Reason: Protocol Last Admin: 07/26/17 12:30 Dose: Not Given Lisinopril (Zestril) 20 mg PO DAILY [facility] Last Admin: 07/26/17 10:18 Dose: 20 mg Tramadol HCl (Ultram) 50 mg PO Q8 PRN PRN Reason: Pain Last Admin: 07/23/17 13:14 Dose: 50 mg - Labs Labs: 07/24/17 06:10 07/24/17 06:10 PT 12.8 SECONDS (9.7-12.2) H 07/22/17 09:21 INR 1.1 07/22/17 09:21 APTT 39 SECONDS (21-34) H 07/22/17 09:21 Assessment and Plan - Assessment and Plan (Free Text) Assessment: Patient is seen and examined. Alert and orientedx3, denoes sob or chest pain. Cleared by DR Townsend no acute blood clots, may discharge on baby aspirin. D/W DR Farah, plan to send home today. Advised to follow up with PMDin 1 week.
--- NOTE | 2017-07-26 17:24 | CP.PCM.PN ---
<RENAE MARQUES - Last Filed: 07/26/17 17:30> Subjective - Date & Time of Evaluation Date of Evaluation: 07/26/17 Time of Evaluation: 10:00 - Subjective Subjective: Renae Marques DO PGY1 - Cardiology Progress Note for Dr. Ascencio Patient seen and examined at bedside. Patient now denies any chest pain/pressure /discomfort, SOB, palpitations, FELIPE, nausea, dizziness. Patient reports a history of heroin use, last used 2 days prior to onset of symptoms. She reports that she snorts, rather than injects it. Patient seen, discussed, and reviewed with attending Objective - Vital Signs/Intake and Output Vital Signs (last 24 hours): Temp Pulse Resp BP Pulse Ox 98.7 F 79 20 141/89 98 07/26/17 08:35 07/26/17 16:20 07/26/17 08:35 07/26/17 10:18 07/26/17 08:35 Intake and Output: 07/26/17 07/26/17 06:59 18:59 Intake Total 950 Balance 950 - Medications Medications: Current Medications Carvedilol (Coreg) 3.125 mg PO BID [facility] Last Admin: 07/26/17 10:18 Dose: 3.125 mg Enoxaparin Sodium (Lovenox) 40 mg SC DAILY [facility] Last Admin: 07/26/17 10:19 Dose: 40 mg Furosemide (Lasix) 40 mg PO DAILY [facility] Last Admin: 07/26/17 10:18 Dose: 40 mg Glipizide (Glucotrol Xl) 10 mg PO DAILY [facility] Last Admin: 07/26/17 10:19 Dose: 10 mg Insulin Human Regular (Novolin R) 0 unit [facility] PRN Reason: Protocol Last Admin: 07/26/17 12:30 Dose: Not Given Lisinopril (Zestril) 20 mg PO DAILY [facility] Last Admin: 07/26/17 10:18 Dose: 20 mg Tramadol HCl (Ultram) 50 mg PO Q8 PRN PRN Reason: Pain Last Admin: 07/23/17 13:14 Dose: 50 mg - Labs Labs: 07/24/17 06:10 07/24/17 06:10 PT 12.8 SECONDS (9.7-12.2) H 07/22/17 09:21 INR 1.1 07/22/17 09:21 APTT 39 SECONDS (21-34) H 07/22/17 09:21 - Constitutional Appears: Non-toxic, No Acute Distress - Head Exam Head Exam: ATRAUMATIC, NORMOCEPHALIC - Eye Exam Eye Exam: EOMI, Normal appearance - ENT Exam ENT Exam: Mucous Membranes Moist - Neck Exam Neck Exam: Full ROM, Normal Inspection - Respiratory Exam Respiratory Exam: Clear to Ausculation Bilateral, NORMAL BREATHING PATTERN. absent: Rales, Rhonchi, Wheezes - Cardiovascular Exam Cardiovascular Exam: RRR, +S1, +S2 - GI/Abdominal Exam GI & Abdominal Exam: Soft. absent: Tenderness - Extremities Exam Extremities Exam: Full ROM. absent: Calf Tenderness, Pedal Edema Additional comments: Compression stockings in place. - Neurological Exam Neurological Exam: Alert, Awake, Oriented x3 - Psychiatric Exam Psychiatric exam: Normal Affect, Normal Mood - Skin Skin Exam: Dry, Intact Assessment and Plan (1) Chest pain Assessment & Plan: Patient initially presented for chest pressure associated with SOB, now resolved Trop negative x3 EKG shows no signs of ischemia CP unlikely to be cardiac in origin Recommend outpatient stress testing Status: Acute (2) Dyspnea Assessment & Plan: Patient's dyspnea has now resolved Question of PE, positive d-dimer on admission, intermediate risk V/Q scan, but reportedly negative LE duplex (no DVT) per pulmonology Patient has been receiving therapeutic lovenox for possible PE, but that has been ruled out per pulm Pt also had echocardiogram which showed mild LV systolic dysfunction, with LVEF 45% Continue PO lasix, ACEi, and BB Recommend outpatient stress test and continued monitoring; reevaluate heart function in 3-4 months - off heroin - to see if cardiac function improves 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 Discussed abstinence Recommend outpatient PFT and pulmonology f/u Status: Acute (3) HTN (hypertension) Assessment & Plan: BP well controlled on current regimen Continue lasix, coreg, lisinopril Status: Chronic (4) Pulmonary embolism Assessment & Plan: PE ruled out, per pulm ([place]), as above (see dyspnea plan) Status: Acute <Adam Ascencio - Last Filed: 07/26/17 23:56> Subjective - Subjective Subjective: PATIENT WAS SEEN , EXAMINED AND EVALUATED ABOVE PLAN OF CARE WAS DEVISED BY ME SUPERVISED ABOVE RESIDENT IN DOCUMENTATION Objective - Vital Signs/Intake and Output Vital Signs (last 24 hours): Temp Pulse Resp BP Pulse Ox 98.5 F 79 20 119/69 96 07/26/17 15:24 07/26/17 16:20 07/26/17 15:24 07/26/17 15:24 07/26/17 15:24 Intake and Output: 07/26/17 07/27/17 18:59 06:59 Intake Total 950 Balance 950 - Labs Labs: 07/24/17 06:10 07/24/17 06:10 PT 12.8 SECONDS (9.7-12.2) H 07/22/17 09:21 INR 1.1 07/22/17 09:21 APTT 39 SECONDS (21-34) H 07/22/17 09:21 - Cardiovascular Exam Cardiovascular Exam: Murmur Assessment and Plan (1) Chest pain Status: Acute (2) Dyspnea Status: Acute (3) HTN (hypertension) Status: Chronic (4) Pulmonary embolism Status: Acute
[2017-07-26 17:25] VITALS: BP 119/69; TEMP 98.5; O2SAT 96
--- NOTE | 2017-07-27 08:01 | PN ---
SUBJECTIVE: The patient has no significant symptoms. . At this point, she needs a venous Doppler. She needs a CT angio. V/Q scan. In the absence of any significant symptoms, and without any pulmonary embolism, the patient will be restarted on aspirin. Follow as an outpatient. Michele Townsend MD
--- NOTE | 2017-07-27 09:50 | VASCLAB ---
PROCEDURE: Lower Extremity Venous Duplex Exam. HISTORY: Bilateral Lower Extremity Swelling PRIORS: None. TECHNIQUE: Bilateral common femoral, femoral, popliteal and posterior tibial, peroneal and great saphenous veins were evaluated. Flow was assessed with color Doppler, compressibility, assessment of phasic flow and augmentation response. Report prepared by Glen Koroma, WANDER, RVT FINDINGS: RIGHT: 1. Common Femoral Vein: 1.1. Compressibility - Fully compressible: Thrombus - None : Flow - Phasic: Augmentation -Normal: Reflux - None. 2. Femoral Vein: 2.1. Compressibility - Fully compressible: Thrombus - None : Flow - Phasic: Augmentation -Normal: Reflux - None. 3. Popliteal Vein: 3.1. Compressibility - Fully compressible: Thrombus - None : Flow - Phasic: Augmentation -Normal: Reflux - None. 4. Posterior Tibial Vein: 4.1. Compressibility - : Thrombus - : Flow - : Augmentation -: Reflux - . 5. Peroneal Vein: 5.1. Compressibility - : Thrombus - : Flow - : Augmentation -: Reflux - . 6. Great Saphenous Vein: 6.1. Compressibility - Fully compressible: Thrombus - None: Flow - Phasic: Augmentation - Normal: Reflux - None. LEFT: 1. Common Femoral Vein: 1.1. Compressibility - Fully compressible: Thrombus - None: Flow - Phasic: Augmentation -Normal: Reflux - None. 2. Femoral Vein: 2.1. Compressibility - Fully compressible: Thrombus - None: Flow - Phasic: Augmentation -Normal: Reflux - None. 3. Popliteal Vein: 3.1. Compressibility - Fully compressible: Thrombus - None : Flow - Phasic: Augmentation -Normal: Reflux - None. 4. Posterior Tibial Vein: 4.1. Compressibility - : Thrombus - : Flow - : Augmentation -: Reflux - . 5. Peroneal Vein: 5.1. Compressibility - : Thrombus - : Flow - : Augmentation -: Reflux - . 6. Great Saphenous Vein: 6.1. Compressibility - Fully compressible: Thrombus - None: Flow - Phasic: Augmentation - Normal: Reflux - None. OTHER FINDINGS: due to swelling in the calves, bilateral peroneal and posterior tibial vein are not visualized. IMPRESSION: Right: No evidence of deep or superficial vein thrombosis of the right lower extremity. Normal valve function noted of the right side. Left: No evidence of deep or superficial vein thrombosis of the left lower extremity. Normal valve function noted of the left side.
== END 2017-07-26 18:10 | disposition home or self-care (01) | DRG 143 ==
LOC: C.ER 08:23 → C.9E 13:27 → C.6T 17:20 → OBSVTOIN 07-24 10:23
PROVIDERS: ADMIT Internal Medicine; ATTEND Internal Medicine
DX: R07.89 Other chest pain (principal); J84.9 Interstitial pulmonary disease, unspecified; F11.10 Opioid abuse, uncomplicated; E11.65 Type 2 diabetes mellitus with hyperglycemia; N39.0 Urinary tract infection, site not specified; I10 Essential (primary) hypertension; F32.9 Major depressive disorder, single episode, unspecified; F41.9 Anxiety disorder, unspecified; J32.2 Chronic ethmoidal sinusitis; K21.9 Gastro-esophageal reflux disease without esophagitis; M06.9 Rheumatoid arthritis, unspecified; E66.01 Morbid (severe) obesity due to excess calories; G89.4 Chronic pain syndrome; F17.210 Nicotine dependence, cigarettes, uncomplicated; Z90.49 Acquired absence of other specified parts of digestive tract; Z23 Encounter for immunization; Z68.42 Body mass index [BMI] 45.0-49.9, adult